=== PATIENT | male | born 1965 | race Hispanic/Latino ===

== ENCOUNTER 2024-12-04 10:09 | Emergency (ER) | payer MEDICAID ==
[~2024-12-04] VITALS: Ht 165.1 cm; Wt 104.8 kg
[2024-12-04] MEDS ORDERED: ONDANSETRON 4 MG TAB ODT SL ONE (11:00)
[2024-12-04 11:16] LABS: CORONAVIRUS COVID-19 AG NEGATIVE (NEGATIVE); INFLUENZA A AG NEGATIVE (NEGATIVE); INFLUENZA B AG NEGATIVE (NEGATIVE)
[2024-12-04] MEDS ORDERED: ONDANSETRON ODT8 MG PO (12:25)
[2024-12-04 12:30] VITALS: BP 119/73
== END 2024-12-04 12:32 | disposition home or self-care (01) ==
LOC: ED 10:09
PROVIDERS: Emergency Medicine
DX: R11.0 Nausea (principal); R50.9 Fever, unspecified; R63.0 Anorexia
CPT/HCPCS: 36415; 99283; A9270